=== PATIENT | female | born 1935 | race Caucasian/White ===

== ENCOUNTER → 2018-04-20 | Outpatient (CLI) | payer OTHER ==
[~2018-04-20] VITALS: Ht 162.6 cm; Wt 74.6 kg
[~2018-04-20] MED LIST: ASPIR 8181 MG PO; CALCIUM 500 +1 EAC5 PO; CENTRUM SILVER1 EAC4 PO; FOSAMAX 70 MG T70 MG PO; LOVASTATIN 20 M20 MG PO; PRILOSEC 20 MG20 MG PO; ZESTORETIC 20-1 EAC3 PO
[2018-04-20 14:02] VITALS: BP 108/60
== END ==
LOC: SEN 09:08
DX: I10 Essential (primary) hypertension (principal); E78.5 Hyperlipidemia, unspecified; K21.9 Gastro-esophageal reflux disease without esophagitis; M81.0 Age-related osteoporosis without current pathological fracture

== ENCOUNTER → 2019-06-28 | Outpatient (CLI) | payer OTHER | LOC: ULTRA 10:27 | DX: E04.2 Nontoxic multinodular goiter (principal) ==

== ENCOUNTER → 2019-07-10 | Outpatient (CLI) | payer OTHER | LOC: RAD 14:14 | DX: E04.1 Nontoxic single thyroid nodule (principal); M89.319 Hypertrophy of bone, unspecified shoulder ==